=== PATIENT | male | born 1955 | race Caucasian/White ===

== ENCOUNTER → 2017-11-29 11:18 | Outpatient (CLI) | payer OTHER, SELFPAY ==
[2017-11-29 12:57] LABS: Hemoglobin A1c 5.9 % (4.2-6.3)
[2017-11-29 13:05] LABS: AST(SGOT) 12 U/L (15-37); Alanine Aminotransfer ALT/SGPT 22 U/L (16-61); Albumin, Serum 3.9 g/dL (3.2-5.0); Alkaline Phosphatase 78 U/L (45-117); Anion Gap 9 (5-15); BUN 15 mg/dL (7-18); BUN/Creat Ratio 15.2 RATIO (10-20); Calcium,Total 8.6 mg/dL (8.5-10.1); Chloride 106 mmol/L (98-107); Cholesterol 182 mg/dL (200); Creatinine, Serum 0.98 mg/dL (0.70-1.30); EST Glomerular Filtration Rate 81 mL/min (>60); Est Glom Filt Rate - Afr Amer 99 mL/min (>60); Glucose 110 mg/dL (74-106); High Density Lipoprotein 64 mg/dL; Protein, Total 7.9 g/dL (6.4-8.2); Sodium Level 138 mmol/L (136-145); Triglycerides 110 mg/dL; Very Low Density Lipoprotein 22 mg/dL (5-40)
== END ==
PROVIDERS: Family Provider Family Medicine; PCP Family Medicine; Visit Provider Family Medicine
DX: E11.9 Type 2 diabetes mellitus without complications (principal)
CPT/HCPCS: 36415; 80053; 80061; 83036

== ENCOUNTER → 2017-12-29 16:20 | Outpatient (CLI) | payer OTHER, SELFPAY ==
--- NOTE | 2017-12-29 16:35 | RAD_ITS ---
STUDY: X-RAY CHEST REASON FOR EXAM: Male, 62 years old. Preop TECHNIQUE: PA and lateral views of the chest. COMPARISON: None. FINDINGS: The lungs are hyperinflated. There is no demonstrated pleural abnormality. Normal size heart. Normal mediastinum and carlin. Normal visualized pulmonary arteries. Normal visualized aortic arch and descending thoracic aorta. There are diffuse degenerative changes of the visualized thoracic spine. Normal visualized ribs, clavicles, and shoulders. There is no demonstrated abnormality of the visualized soft tissue structures of the upper abdomen. RAD/Chest PA and Lateral IMPRESSION: Hyperinflated lungs suggestive of COPD. Degenerative changes of the thoracic spine. No acute cardiopulmonary disease process is seen. Electronically Signed: Karlos Lackey MD at 16:50 EDT , Service support ,
--- NOTE | 2017-12-29 16:38 | EKG12_ITS ---
Test Reason : PREOP Blood Pressure : / mmHG Vent. Rate : 081 BPM Atrial Rate : 081 BPM P-R Int : 134 ms QRS Dur : 104 ms QT Int : 366 ms P-R-T Axes : 052 -11 075 degrees QTc Int : 425 ms Normal sinus rhythm Possible Left atrial enlargement Incomplete right bundle branch block Borderline ECG Confirmed by RITESH GREY, SONALI ([id number]), assignment editor ARIN MONAE ([id number] on 01/02/2018 2:38:18 PM Referred By: Cuong Crowell Confirmed By:SONALI AWAD MD
[2017-12-29 16:44] LABS: Hematocrit 43.1 % (40-54); Hemoglobin 14.7 g/dl (13.0-16.5); Mean Corp Hgb Conc 34.1 g/gl (32-36); Mean Corpuscular Hgb 32.3 pg (27.0-32.0); Mean Corpuscular Volume 94.7 fL (80-94); Mean Platelet Vol. 8.6 fl (6.2-12.0); Platelet Count 274 K/mm3 (150-450); RBC Distribution Width CV 13.2 % (11.6-14.6); RBC Distribution Width SD 45.8 fl (35.1-43.9); Red Blood Count 4.55 M/mm3 (4.6-6.2); White Blood Count 8.1 K/mm3 (4.4-11.0)
[2017-12-29 16:46] LABS: Scan Indicated on CBC? Y/N NO
[2017-12-29 17:04] LABS: Partial Thromboplast Time 29.8 Seconds (24.1-36.2); Prothrombin Time (Protime)PT. 13.2 SECONDS (11.7-14.9)
[2017-12-29 17:15] LABS: Anion Gap 9 (5-15); BUN 12 mg/dL (7-18); BUN/Creat Ratio 11.5 RATIO (10-20); Calcium,Total 9.2 mg/dL (8.5-10.1); Chloride 101 mmol/L (98-107); Creatinine, Serum 1.04 mg/dL (0.70-1.30); EST Glomerular Filtration Rate 76 mL/min (>60); Est Glom Filt Rate - Afr Amer 93 mL/min (>60); Glucose 117 mg/dL (74-106); Sodium Level 136 mmol/L (136-145)
== END ==
PROVIDERS: Family Provider Family Medicine; PCP Family Medicine; Referring Provider Orthopaedic Surgery; Visit Provider Orthopaedic Surgery
DX: Z01.818 Encounter for other preprocedural examination (principal); M17.12 Unilateral primary osteoarthritis, left knee; S83.242A Other tear of medial meniscus, current injury, left knee, initial encounter; M71.22 Synovial cyst of popliteal space [Baker], left knee
CPT/HCPCS: 36415; 71046; 80048; 85027; 85610; 85730; 93005

== ENCOUNTER → 2018-01-23 10:42 | Outpatient (CLI) | payer OTHER, SELFPAY ==
--- NOTE | 2018-01-23 10:51 | VDLE_ITS ---
Reason For Study: R/O DVT Procedure LEFT Exam performed in department. GSV is normal. A preliminary report was called and/or faxed CFV is compressible, spontaneous, phasic, to DR MONTAÑO. competent, and demonstrates normal augmentation. FV is compressible, spontaneous, phasic, competent and demonstrates normal augmentation. POP V is compressible, spontaneous, phasic, competent and demonstrates normal augmentation. T/P Trunk is compressible. PTV is compressible. LT PerV is compressible. Interpretation Summary Deep veins of the left lower extremity are patent and compressible segmentally. There is no evidence of left lower extremity deep vein thrombosis. Valvular competence appears intact within the proximal deep venous system on the left . The left greater saphenous vein appears patent and compressible segmentally. Ordering Physician: Cuong Montaño Referring Physician: SUDHIR SMALLWOOD DO Performed By: Mary Odonnell, PERLA, RVT
== END ==
PROVIDERS: Family Provider Family Medicine; PCP Family Medicine; Referring Provider Orthopaedic Surgery; Visit Provider Orthopaedic Surgery
DX: M79.605 Pain in left leg (principal); R22.42 Localized swelling, mass and lump, left lower limb; Z96.652 Presence of left artificial knee joint
CPT/HCPCS: 93971

== ENCOUNTER → 2018-08-31 17:14 | Outpatient (CLI) | payer OTHER, SELFPAY ==
[2018-08-24 15:34] VITALS: BMI 36.1
--- NOTE | 2018-08-31 17:17 | MRI_ITS ---
STUDY: MRI LUMBAR SPINE WITHOUT CONTRAST REASON FOR EXAM: Male, 63 years old. Low back pain radiating to right leg TECHNIQUE: Standardized fat and water weighted pulse sequences were obtained in the sagittal and axial planes. COMPARISON: Lumbar spine films on August 31, 2018 FINDINGS: T12-L1: Normal endplates. Normal disc height, hydration and morphology. Normal bilateral facet joints. Normal central canal and bilateral lateral recesses. Normal bilateral intervertebral neural foramina. Decreased lumbar lordosis. There is no substantial scoliosis. Normal conus medullaris that terminates at T12-L1 L1-2: Endplate spurring. Narrowed disc space with desiccation of the disc and minor annular bulge with small left neural foraminal disc protrusion.. Normal bilateral facet joints. Normal central canal and bilateral lateral recesses. Mild left neuroforaminal stenosis.. L2-3: Narrowed disc space and endplate spurring. Desiccation of the disc and minor annular bulge. Mild facet arthropathy greater on the right. Mild narrowing of the central canal.. Normal bilateral recesses. Moderate left neuroforaminal stenosis and more severe narrowing on the right L3-4: Status post bilateral laminectomy. Mild endplate spurring. Normal disc height with desiccation of the disc and minor bulging disc osteophyte complex.. The lateral facet arthropathy greater on the right mild narrowing of the central canal. Normal bilateral recesses. Moderate bilateral neuroforaminal stenosis L4-5: Postsurgical changes status post bilateral laminectomy. Narrowed disc space and desiccation of the disc with mild annular bulge. Bilateral facet arthropathy.. Mild narrowing of the central canal. Mild right lateral recess stenosis. Moderate left neuroforaminal stenosis and severe narrowing on the right L5-S1: Grade 1 retrolisthesis desiccation of the disc and minor bulging disc osteophyte complex. Facet arthropathy and mild thickening of ligamenta flava slightly more pronounced on the left. Normal central canal. Mild bilateral recess encroachment. Moderate right neuroforaminal stenosis and more severe narrowing on the left Normal visualized sacral ala. Normal visualized paraspinous soft tissue structures. MRI/Spine Lumbar (Routine) IMPRESSION: No evidence for acute fracture or subluxation Postop change status post bilateral laminectomy at L3-4 and L4-5. Multilevel spinal stenosis secondary to disc disease and bony hypertrophy Findings as above Electronically Signed: Cuong Anthony MD at 19:39 EDT , Service support ,
--- NOTE | 2018-08-31 17:30 | RAD_ITS ---
STUDY: X-RAY - LUMBAR SPINE REASON FOR EXAM: Male, 63 years old. Back pain TECHNIQUE: 3 view(s) of the lumbar spine were obtained. COMPARISON: None FINDINGS: Normal lumbar lordosis. There is a mild scoliosis. Laminectomy defect at L3, L4, and L5 segments. Degenerative changes are noted of the vertebral bodies spurring at the endplates. Narrowed L4-5 disc space with vacuum phenomenon. The soft tissue structures are unremarkable. Right upper quadrant surgical clips. RAD/Lumbar Spine 2 or 3 Views IMPRESSION: Degenerative postsurgical changes of the lumbar spine. Mild scoliosis. Electronically Signed: Trevor Nicole DO at 18:07 EDT Tel [phone], Service support ,
== END ==
PROVIDERS: Family Provider Family Medicine; PCP Family Medicine; Referring Provider Family Medicine; Visit Provider Family Medicine
DX: M51.36 Other intervertebral disc degeneration, lumbar region (principal)
CPT/HCPCS: 72100; 72148

== ENCOUNTER 2018-10-18 09:30 | Outpatient (RCR) | payer OTHER, SELFPAY ==
[2018-08-24 15:34] VITALS: BMI 36.1
--- NOTE | 2018-09-25 18:04 | HP.PTEVAL ---
Patient's Visit Information GERMAN ALAMGUER is a 63 year old M referred to Physical Therapy by Imer Oreilly DO with a diagnosis of LBP. Date of Evaluation: 09/25/18 Physical Therapist: Aurelio Rosa PT, ATC - Visit Plan Frequency: 2x /Week Duration: 3 Weeks Plan: Postural edu, REIL, core stab ex's, nustep, and HEP - Subjective Findings: Pt reports he has had chronic LBP. Pt reports he had surgery in 2013 which completely took aways his pain until 1 year ago. Pt now reports the pain has returned and is bothering him a lot. Pt reports he has R LE pain that radiates down his leg all the way down to the ankle. Pt reports he had recent xrays and MRI performed which revealed spinal stenosis. Pt reports forward bending and lifting tends to increase his pain. Occasional sleep difficulty secondary to pain. Walking helps to decrease his pain. 1/10 pain at rest, 8/10 at worst - Pain LBP Pain Intensity (Out of 10): 1 Pain Intensity Range: 8 - Objective Neuro: B LE sensation is WNL to light touch. B achilles reflex= 1/3. ROM: Pt is minimally limited with flexion and extendion ROM. All other measurements WNL. MMT: B LE MMT is 5/5 throughout. Repeated movements: RFIS 10x2 peripheralized sx's. .JAEL increased central pain after 10x2. REIL 10x2 had no effect on LE or LBP - Goals Goal 1:: Decrease LBP x 50% to aid with sleep Goal Time Frame: 3 weeks Goal 2:: Decrease the frequency and intensity of R LE radiculopathy x 50% to aid with IADL's Goal Time Frame: 3 weeks Goal 3:: I with HEP Goal Time Frame: 3 weeks - Rehabilitation Potential Physical Therapy Diagnosis: Pt has LBP, decreased L/S ROM, and R LE radiculopathy secondary to L/S disc derrangement. Rehabilitation Potential: Good - Anticipated Interventions Patient/Client Instruction: Educate patient on: Condition, Plan of Care For the Purpose of:: To improve self management Therapeutic Exercise to Include: Strength training, Body mechanics, Postural training, Flexibilty training, Active ROM, Dynamic Lumbar Stabilization, Maral Exercises For the Purpose of:: To decrease pain, To increase ROM, To improve muscle performance and motor function Cryotherapy (ice pack, ice massage): Yes For the Purpose of:: To decrease pain Thank you for the opportunity to evaluate your patient. For Medicare and Medicare HMO plans, please review the plan of care and approve it. It will need to be FAXED BACK to us at [phone] for Medicare purposes. For Medicare only, by signing this I certify the plan of care. Please let me know if there are questions or concerns regarding this plan of care. Physician Signature: Date:
--- NOTE | 2018-10-18 09:59 | HP.PTDCSUM ---
HP - PT D/C Summary It has been my pleasure to treat GERMAN ALMAGUER under orders from Imer Oreilly DO, for the diagnosis of LBP for a total of 6 visit(s). Discharge Date: Please see the following information for a summary of their discharge status. - Subjective Subjective: Pt feels minimal pain this date - Pain LBP Pain Intensity (Out of 10): 1 - Overall Improvement % Improvement: 95 - Objective Objective/Function: 04/13 PAIN. No LE radiculopathy at this time. Pt is I with HEP. Rx goals achieved - Goals Goal 1:: Decrease LBP x 50% to aid with sleep Goal Progress: Goal Met Goal 2:: Decrease the frequency and intensity of R LE radiculopathy x 50% to aid with IADL's Goal Progress: Goal Met Goal 3:: I with HEP Goal Progress: Goal Met - Plan Plan: Discharge - D/C Information If there are questions or concerns regarding this patient's physical therapy, please feel free to call me at [phone]. Thank you for the referral of this patient. Sincerely, Aurelio Rosa, PT, ATC
== END 2018-10-18 10:56 | disposition home or self-care (01) ==
LOC: PT 09:30
PROVIDERS: Family Provider Family Medicine; PCP Family Medicine; Referring Provider Family Medicine; Visit Provider Family Medicine
DX: M51.36 Other intervertebral disc degeneration, lumbar region (principal)
CPT/HCPCS: 97110; 97161; 97530

== ENCOUNTER → 2018-12-06 12:52 | Outpatient (CLI) | payer OTHER, SELFPAY ==
[2018-08-24 15:34] VITALS: BMI 36.1
--- NOTE | 2018-12-06 12:54 | CT_ITS ---
STUDY: LOW DOSE CT LUNG CANCER SCREENING REASON FOR EXAM: Male, 63 years old. 30 pack-year history now smoking half a pack a day. 220 pounds. RADIATION DOSAGE (If Supplied By Facility): CTDIvol = ( 4.02 ) mGy, DLP = ( 146.97 ) mGycm TECHNIQUE: No contrast was administered. Low dose technique was utilized (average mAS-38 and kVp 120). 1.25 mm axial source images with a slice interval of 1.25-mm were reconstructed in lung windows. 2.5 mm axial source images with a slice interval of 2.5-mm were reconstructed in lung windows. 5.0 mm axial source images with a slice interval of 5.0-mm were reconstructed in soft tissue windows. Nodule measured using lung windows on PACS and/or independent workstation with automated measurement of minimum and maximum diameter. Nodule measurement reported as average diameter rounded to the nearest whole number. Growth is defined as an increase ins size of greater than 1.5 mm. COMPARISON: Chest, December 29, 2017. NODULES: Nodule #: 1 Density: Solid Lung location: Right upper lobe: Pleural-based Location in series: Series Number: 2 Image: 58 1. Size - D1 x D2 mm: mm: 2 mm average diameter Margin: Smooth Shape: [place] Calcification: Yes Fat: No Temporal comparison: None Nodule #: 2 Density: Solid Lung location: Right upper lobe: Pleural-based Location in series: Series Number: 2 Image: 57 Size - D1 x D2 mm: 2 x 2 mm: 2 mm average diameter Margin: Smooth Shape: Rounded Calcification: No Fat: No Temporal comparison: None Nodule #: 3 Density: Solid Lung location: Right upper lobe: 0.3 cm from pleura Location in series: Series Number: 2 Image: 103 Size - D1 x D2 mm: 2 x 2 mm: 2 mm average diameter Margin: Smooth Shape: Round Calcification: Yes Fat: No Temporal comparison: None Nodule #: 4 Density: Solid Lung location: Right upper lobe: 12.3 cm from pleura Location in series: Series Number: 2 Image: 110 Size - D1 x D2 mm: 2 x 2 mm: 2 mm average diameter Margin: Smooth Shape: Rounded Calcification: No Fat: No Temporal comparison: None Nodule #: 5 Density: Solid Lung location: Right middle lobe: Pleural-based Location in series: Series Number: 2 Image: 146 Size - D1 x D2 mm: 2 x 2 mm: 2 mm average diameter Margin: Smooth Shape: Triangular Calcification: No Fat: No Temporal comparison: None Nodule #: 6 Density: Solid Lung location: Right lower lobe: 0.5 cm from pleura Location in series: Series Number: 2 Image: 17 Size - D1 x D2 mm: 4 x 5 mm: 5 mm average diameter Margin: Smooth Shape: Oval Calcification: No Fat: No Temporal comparison: None Total lung nodules (excluding granulomas): 4 Emphysema: The lungs are hyperexpanded without evidence of emphysematous change. Endobronchial lesion: Not Aorta: Minimal atherosclerotic changes without aneurysm. Coronary arteries: Atherosclerotic changes. Heart: Normal in size Pulmonary artery: Normal Mediastinal nodes: None Other chest and abdominal findings: There are degenerative changes of the thoracic spine. There are bilateral adrenal low-attenuation masses suggesting adenomas. CT/Low Dose CT Lung Screening IMPRESSION: 1. Multiple pulmonary nodules. There is evidence of old granulomatous disease. 2. Bilateral adrenal nodules. 3. Atherosclerotic changes of the aorta and coronary arteries. Lung-RADS category 1 - Continue annual screening with LDCT in 12 months. IMPORTANT NOTES FOR USE: ACR Lung-RADS Version 1.0 Assessment Categories Release Date: July 30, 2013 Category: Coded 0-4 bases on nodule(s) with highest degree of suspicion. Negative screen is defined as categories 1 and 2; a positive screen is defined as categories 3 and 4. Category 3 and 4A nodules that are unchanged on interval CT should be coded as category 2, and individuals returned to screening in 12 months. Category 4X: Category 3 or 4 nodules with additional imaging findings that increase the suspicion of lung cancer, such as spiculation, GGN that doubles in size in 1 year, enlarged lymph notes, etc. Category Modifiers: S (significant finding unrelated to lung cancer) and C (prior history of treated lung cancer) may be added to the 0-4 Lung-RADS Electronically Signed: Jules Tautm DO at 18:09 EDT Tel [phone], Service support ,
== END ==
PROVIDERS: Family Provider Family Medicine; PCP Family Medicine; Referring Provider Internal Medicine Pulmonary Disease; Visit Provider Internal Medicine Pulmonary Disease
DX: Z87.891 Personal history of nicotine dependence (principal)
CPT/HCPCS: G0297

== ENCOUNTER → 2019-02-13 10:01 | Outpatient (CLI) | payer OTHER, SELFPAY ==
[2019-02-13 09:36] VITALS: BMI 36.1
[2019-02-13 13:13] LABS: AST(SGOT) 14 U/L (15-37); Alanine Aminotransfer ALT/SGPT 23 U/L (16-61); Albumin, Serum 3.7 g/dL (3.2-5.0); Alkaline Phosphatase 76 U/L (45-117); Anion Gap 7 (5-15); BUN 14 mg/dL (7-18); BUN/Creat Ratio 15.7 RATIO (10-20); Calcium,Total 8.6 mg/dL (8.5-10.1); Chloride 105 mmol/L (98-107); Creatinine, Serum 0.89 mg/dL (0.70-1.30); EST Glomerular Filtration Rate 91 mL/min (>60); Est Glom Filt Rate - Afr Amer 110 mL/min (>60); Globulin 3.8 g/dL (2.2-4.2); Glucose 135 mg/dL (74-106); Potassium 4.2 mmol/L (3.5-5.1); Protein, Total 7.5 g/dL (6.4-8.2); Sodium Level 140 mmol/L (136-145)
== END ==
PROVIDERS: Family Provider Family Medicine; PCP Family Medicine; Visit Provider Family Medicine
DX: E11.9 Type 2 diabetes mellitus without complications (principal)
CPT/HCPCS: 36415; 80053

== ENCOUNTER 2019-05-07 06:58 | Day surgery (SDC) | payer OTHER, SELFPAY ==
[2019-03-29 10:25] VITALS: BMI 36.9
[2019-05-07 07:27] VITALS: BP 116/80; PULSE 73; RESP 16; TEMP 36.8; O2SAT 95; BMI 36.3
[2019-05-07 07:35] LABS: Bedside Glucose 139 mg/dL (70-110)
[2019-05-07] MEDS: Lactated Ringers 1,000 ML 100 ML IV (08:07)
[2019-05-07] MEDS: Bupivacaine 0.25% 30 ML Vial (08:23)
[2019-05-07] MEDS: MethylPREDNISolone Acetate 80 MG/ML Vial (08:23)
--- NOTE | 2019-05-07 08:24 | RAD_ITS ---
STUDY: X-RAY - LUMBAR SPINE REASON FOR EXAM: Male, 64 years old. STEROID INJECTION, L4-S1 2 LEVELS -- 18 SECONDS FL TIME TECHNIQUE: 2 coned-down intraoperative view(s) of the lumbar spine were obtained. COMPARISON: None FINDINGS: Intraoperative imaging provided for right L4-L5 and L5-S1 level steroid injection. RAD/Lumbar Spine 2 or 3 Views IMPRESSION: Intraoperative imaging provided for right L4-L5 and L5-S1 steroid injection. Electronically Signed: Marcos Alexandra, at 11:07 EST , Service support ,
[2019-05-07 08:34] VITALS: BP 116/80; BP 119/92; PULSE 72; RESP 18; TEMP 37.1; O2SAT 96
[2019-05-07 08:40] VITALS: BP 116/80; BP 131/56; PULSE 70; RESP 16; O2SAT 95
[2019-05-07 08:45] VITALS: BP 116/80; BP 122/61; PULSE 72; RESP 16; O2SAT 97
[2019-05-07 08:49] VITALS: BP 116/80; BP 120/60; PULSE 67; RESP 16; TEMP 37.2; O2SAT 95
[2019-05-07 09:07] VITALS: BP 116/80
--- NOTE | 2019-05-07 14:04 | OP.PCM_ITS ---
Report of Operation Date of Procedure: 05/07/19 Description of Surgical Findings:: PREOPERATIVE DIAGNOSIS: Lumbosacral radiculopathy, lumbosacral degenerative disc disease, lumbosacral spinal stenosis POSTOPERATIVE DIAGNOSIS: Lumbosacral radiculopathy, lumbosacral degenerative disc disease, lumbosacral spinal stenosis PROCEDURE PERFORMED: Right-sided lumbar transforaminal epidural steroid in jection, L4-5 and L5-S1. ANESTHESIA: MAC BLOOD LOSS: Minimal COMPLICATIONS: None DESCRIPTION OF PROCEDURE: History and physical of today was reviewed. Risks and benefits of the procedure were explained. The patient understood and agreed to proceed. Informed consent was obtained. IV inserted per routine protocol. The patient was taken to the operating room and placed in the prone position with a pillow positioned underneath the abdomen. The right side of his lower back was prepped and draped in a sterile fashion using iodine x3. Under fluoroscopy guidance on oblique view, the L4 through S1 vertebral bodies were visualized. The skin and subcutaneous tissue was anesthetized with approximately 5 mL of 1% lidocaine using a 25-gauge regular needle. Under direct visualization with fluoroscopy at approximately 35-degree angle, starting on the right L4, ending on the right L5, using a 22-gauge 5-inch spinal needle, the needle was advanced via the skin. The tip of the needle was maneuvered and directed towards the inferior and medial gutter of the transverse process at the superiormost aspect of the neural foramen. Once the tip of the needle was at the vicinity of the foramen, after negative aspiration for blood or CSF, a total of 1 mL of contrast was injected in divided doses between both levels to confirm correct placement of the needle as well as medial spread. The confirmation was obtained on AP as well as lateral view. After repeated negative aspiration and confirmation on AP as well as lateral view, a total of 6 mL of preservative-free 0.25% Marcaine with 80 mg of Depo-Medrol was injected in divided doses between both levels. The needles were then removed intact. The patient experienced no sign or symptoms of intrathecal or intravascular injection. The patient experienced no paresthesia. The procedure was completed without any apparent difficulty or any complications. The patient appeared to tolerate it well. Assessment and plan: This is a 64-year-old male with lumbosacral radiculopathy, lumbosacral degenerative disc disease, lumbosacral spinal stenosis status post right-sided lumbar transforaminal epidural steroid injection L4-5, L5-S1 patient will continue his current medications patient found approximately 2 weeks for reevaluation.
== END 2019-05-07 09:09 | disposition home or self-care (01) ==
LOC: SDC 06:59 → AC 07:00
PROVIDERS: PCP Family Medicine; Referring Provider Anesthesiology Pain Medicine; Visit Provider Anesthesiology Pain Medicine
PROC: 3E0S3BZ Introduction of Anesthetic Agent into Epidural Space, Percutaneous Approach (ICD-10-PCS; CPT 62322; principal; 2019-05-07 08:25)
DX: M51.17 Intervertebral disc disorders with radiculopathy, lumbosacral region (principal); M48.07 Spinal stenosis, lumbosacral region; M47.27 Other spondylosis with radiculopathy, lumbosacral region; M96.1 Postlaminectomy syndrome, not elsewhere classified; E11.9 Type 2 diabetes mellitus without complications; G47.33 Obstructive sleep apnea (adult) (pediatric); I10 Essential (primary) hypertension; F17.200 Nicotine dependence, unspecified, uncomplicated; Z79.84 Long term (current) use of oral hypoglycemic drugs; Z79.899 Other long term (current) drug therapy
CPT/HCPCS: 64484; 64483; 72100; 82962; J7120

== ENCOUNTER 2019-06-04 06:02 | Day surgery (SDC) | payer OTHER, SELFPAY ==
[2019-06-04] VITALS (7 sets, daily range): BP systolic 85–127; BP diastolic 57–99; PULSE 72–84; RESP 16–18; TEMP 36.9–37.1; O2SAT 95–96; BMI 36.4
[2019-06-04] MEDS: Lactated Ringers 1,000 ML 100 ML IV (06:42)
--- NOTE | 2019-06-04 07:30 | RAD_ITS ---
STUDY: X-RAY - LUMBAR SPINE REASON FOR EXAM: Male, 64 years old. Block, lumbar facet, l3-s1, right TECHNIQUE: 3 intraoperative view(s) of the lumbar spine were obtained. COMPARISON: None FINDINGS: Intraoperative imaging provided for right L3 S1 facet joint block. RAD/Lumbar Spine 2 or 3 Views IMPRESSION: Intraoperative imaging provided for right L3 S1 facet joint block. Electronically Signed: Marcos Alexandra, at 15:05 EST , Service support ,
[2019-06-04] MEDS: Bupivacaine 0.25% 30 ML Vial (07:33)
[2019-06-04] MEDS: MethylPREDNISolone Acetate 80 MG/ML Vial (07:35)
--- NOTE | 2019-06-04 08:09 | OP.PCM_ITS ---
Report of Operation Date of Procedure: 06/04/19 Description of Surgical Findings:: PROCEDURE: Right-sided lumbar facet steroid injection L3, L4, L5, S1 PREOPERATIVE DIAGNOSIS: Lumbosacral spondylosis, lumbosacral degenerative disc disease, and lumbar facet arthropathy POSTOPERATIVE DIAGNOSIS: Lumbosacral spondylosis, lumbosacral degenerative disc disease, and lumbar facet arthropathy ANESTHESIA: MAC COMPLICATIONS: None BLOOD LOSS: Minimal PROCEDURE IN DETAIL: History and physical today was reviewed. Risks and benefits of the procedure were explained. The patient understood, agreed to our procedure, and informed consent was obtained. IV inserted per routine protocol. The patient was taken to the operating room, placed in a prone position with a pillow positioned underneath the abdomen. The right side of his lower back was prepped and draped in a sterile fashion using iodine x3. Under fluoroscopy guidance, on AP view, L3 through S1 vertebral bodies were visualized. Skin and subcutaneous tissues were anesthetized with approximately 5 mL of 1% lidocaine using a 25-gauge regular needle. Under direct visualization with fluoroscopy at approximately 25-degree angle, starting on the right L3, ending on the right S1, passing through the L4-L5 using a 22-gauge 3 1/2-inch spinal needle, the needle was advanced via the skin. The tip of the needle was maneuvered and directed towards the superior and medial gutter of the transverse process at the vicinity of the medial branch. Once the tip of the needle was in contact with the bone, the needle pulled approximately 2 mm off the bone. After negative aspiration of blood with CSF and confirmation of AP as well as oblique view, a total of 8 mL of preservative-free 0.25% Marcaine with 80 mg of Depo- Medrol was injection in divided doses between those 4 levels. The needles were then removed intact. The patient experienced no signs or symptoms intrathecal, intravascular injection. The patient experienced no paraesthesia. The procedure was completed without any apparent difficult, any complication. The patient appeared to tolerate well. ASSESSMENT AND PLAN: This is a 64-year-old Male with Lumbosacral spondylosis, lumbosacral degenerative disc disease, and lumbar facet arthropathy, status post right-sided lumbar facet steroid injection L3 through S1. The patient will continue his current medications. The patient will follow in approximately 2 weeks for possible repeat of the procedure if indicated.
== END 2019-06-04 08:50 | disposition home or self-care (01) ==
LOC: SDC 06:02 → AC 06:03
PROVIDERS: PCP Family Medicine; Referring Provider Anesthesiology Pain Medicine; Visit Provider Anesthesiology Pain Medicine
PROC: 3E0T3BZ Introduction of Anesthetic Agent into Peripheral Nerves and Plexi, Percutaneous Approach (ICD-10-PCS; CPT 64493; principal; 2019-06-04 07:25)
DX: M47.27 Other spondylosis with radiculopathy, lumbosacral region (principal); M47.816 Spondylosis without myelopathy or radiculopathy, lumbar region; M51.37 Other intervertebral disc degeneration, lumbosacral region; E11.9 Type 2 diabetes mellitus without complications; I10 Essential (primary) hypertension; G47.33 Obstructive sleep apnea (adult) (pediatric); M19.90 Unspecified osteoarthritis, unspecified site; Z79.899 Other long term (current) drug therapy; Z79.84 Long term (current) use of oral hypoglycemic drugs; F17.290 Nicotine dependence, other tobacco product, uncomplicated; M96.1 Postlaminectomy syndrome, not elsewhere classified
CPT/HCPCS: 01992; 64493; 64494; 64495; 64483; 72100; J7120

== ENCOUNTER 2019-10-08 09:09 | Day surgery (SDC) | payer OTHER, SELFPAY ==
[2019-08-14 09:46] VITALS: BMI 36.4
[2019-10-08 09:26] VITALS: BP 152/86; PULSE 75; RESP 16; TEMP 37; O2SAT 99; BMI 35.6
[2019-10-08] MEDS: Lactated Ringers 1,000 ML 100 ML IV (09:39)
[2019-10-08] MEDS: 0.9% Normal Saline (Pres. free 10 ML Vial (10:26)
[2019-10-08] MEDS: MethylPREDNISolone Acetate 80 MG/ML Vial (10:26)
[2019-10-08] MEDS: Bupivacaine 0.25% 30 ML Vial (10:26)
[2019-10-08 10:35] VITALS: BP 138/69; BP 152/86; PULSE 75; RESP 18; TEMP 36.7; O2SAT 96
[2019-10-08 10:40] VITALS: BP 134/75; BP 152/86; PULSE 80; RESP 16; O2SAT 95
--- NOTE | 2019-10-08 10:42 | PCM.OPRPT ---
Report of Operation Date of Procedure: 10/08/19 Description of Surgical Findings:: PREOPERATIVE DIAGNOSIS: Lumbosacral radiculopathy, lumbosacral degenerative disc disease, lumbosacral spinal stenosis POSTOPERATIVE DIAGNOSIS: Lumbosacral radiculopathy, lumbosacral degenerative disc disease, lumbosacral spinal stenosis PROCEDURE PERFORMED: Caudal epidural steroid injection. ANESTHESIA: MAC. BLOOD LOSS: Minimal. COMPLICATIONS: None. DESCRIPTION OF PROCEDURE: History and physical of today was reviewed. Risks and benefits of the procedure were explained. The patient understood and agreed to proceed. Informed consent was obtained. IV inserted per routine protocol. The patient was taken to the operating room and placed in the prone position with a pillow positioned underneath the abdomen. The lower back and tailbone area was prepped and draped in a sterile fashion using iodine x3. Under fluoroscopy guidance on a lateral view, the caudal space was identified. The skin and subcutaneous tissue was anesthetized with approximately 3 mL of 1% lidocaine using a 25-gauge regular needle. Under direct visualization with fluoroscopy, using a 22-gauge 3-1/2-inch spinal needle, the needle was advanced via the skin through the sacral hiatus. The tip of the needle was passed through the sacrococcygeal ligament and advanced to approximately S4 area. After negative aspiration of blood or CSF, a total of 3 mL of contrast was injected to confirm correct placement of the needle as well as cephalad spread. The spread was followed to approximately L5 area. After confirmation on AP as well as lateral view and repeated negative aspiration, a total of 15 mL of preservative-free 0.125% Marcaine with 80 mg of Depo-Medrol was injected easily. The needle was then removed intact. The patient experienced no sign or symptoms of intrathecal or intravascular injection. The patient experienced no paresthesia. The procedure was completed without any apparent difficulty or any complications. The patient appeared to tolerate it well. ASSESSMENT AND PLAN: This is a 64-year-old male with lumbosacral radiculopathy, lumbosacral degenerative disc disease, lumbosacral spinal stenosis status post caudal epidural steroid injection patient will continue his current medications, patient will follow approximately 2 weeks for reevaluation.
[2019-10-08 10:45] VITALS: BP 127/95; BP 152/86; PULSE 76; RESP 16; O2SAT 96
[2019-10-08 10:50] VITALS: BP 138/82; BP 152/86; PULSE 72; RESP 16; TEMP 36.3; O2SAT 94
--- NOTE | 2019-10-08 10:50 | RAD_ITS ---
PROCEDURE: Caudal block. DATE OF EXAMINATION: October 08, 2019. INDICATION: Male, 64 years old. Low back pain. FLUOROSCOPY TIME (if supplied): (4.5 seconds) minutes/seconds. 2 intraoperative images were obtained. Intraoperative imaging provided for caudal block. RAD/Fluoro Guided Needle Placement IMPRESSION: Intraoperative imaging provided for caudal block. Electronically Signed: Marcos Alexandra, at 15:44 EDT , Service support ,
[2019-10-08 11:06] VITALS: BP 152/86
== END 2019-10-08 11:08 | disposition home or self-care (01) ==
LOC: SDC 09:09 → AC 09:10
PROVIDERS: PCP Family Medicine; Referring Provider Anesthesiology Pain Medicine; Visit Provider Anesthesiology Pain Medicine
PROC: 3E0S3BZ Introduction of Anesthetic Agent into Epidural Space, Percutaneous Approach (ICD-10-PCS; CPT 62282; principal; 2019-10-08 10:45)
DX: M48.07 Spinal stenosis, lumbosacral region (principal); M51.17 Intervertebral disc disorders with radiculopathy, lumbosacral region; Z79.899 Other long term (current) drug therapy; Z79.84 Long term (current) use of oral hypoglycemic drugs; I10 Essential (primary) hypertension; M19.90 Unspecified osteoarthritis, unspecified site; E11.9 Type 2 diabetes mellitus without complications; G47.33 Obstructive sleep apnea (adult) (pediatric); Z87.891 Personal history of nicotine dependence
CPT/HCPCS: 01992; 62323; 64483; 77002; J7120; J3490

== ENCOUNTER → 2020-05-27 13:08 | Outpatient (CLI) | payer MEDICARE, SELFPAY ==
[2020-05-27 12:33] VITALS: BMI 35.2
--- NOTE | 2020-05-27 13:09 | CT_ITS ---
STUDY: LOW DOSE CT LUNG CANCER SCREENING REASON FOR EXAM: Male, 65 years old. Lung cancer screening RADIATION DOSAGE (If Supplied By Facility): CTDIvol = ( 3.40 ) mGy, DLP = ( 118.26 ) mGycm TECHNIQUE: No contrast was administered. Low dose technique was utilized (average mAS-38 and kVp 120). 1.25 mm axial source images with a slice interval of 1.25-mm were reconstructed in lung windows. 2.5 mm axial source images with a slice interval of 2.5-mm were reconstructed in lung windows. 5.0 mm axial source images with a slice interval of 5.0-mm were reconstructed in soft tissue windows. Nodule measured using lung windows on PACS and/or independent workstation with automated measurement of minimum and maximum diameter. Nodule measurement reported as average diameter rounded to the nearest whole number. Growth is defined as an increase ins size of greater than 1.5 mm. COMPARISON: Comparison is made with prior examination dated 12/06/2018. NODULES: Stable 2 mm noncalcified nodule in the peripheral lateral aspect of the right upper lobe as seen on axial image #62. Stable tiny calcified granuloma in the peripheral aspect of the right upper lobe. Emphysema: Minimal increased markings in the peripheral lateral aspect of the lingular segment of the left upper lobe suggestive of scarring. Endobronchial lesion: None Aorta: Atherosclerotic calcific plaques. Coronary arteries: Coronary artery calcification. Heart: Unremarkable Pulmonary artery: Unremarkable Mediastinal nodes: Unremarkable Other chest and abdominal findings: CT/Low Dose CT Lung Screening IMPRESSION: Lung-RADS category 2 - Continue annual screening with LDCT in 12 months. IMPORTANT NOTES FOR USE: ACR Lung-RADS Version 1.0 Assessment Categories Release Date: July 30, 2013 Category: Coded 0-4 bases on nodule(s) with highest degree of suspicion. Negative screen is defined as categories 1 and 2; a positive screen is defined as categories 3 and 4. Category 3 and 4A nodules that are unchanged on interval CT should be coded as category 2, and individuals returned to screening in 12 months. Category 4X: Category 3 or 4 nodules with additional imaging findings that increase the suspicion of lung cancer, such as spiculation, GGN that doubles in size in 1 year, enlarged lymph notes, etc. Category Modifiers: S (significant finding unrelated to lung cancer) and C (prior history of treated lung cancer) may be added to the 0-4 Lung-RADS Electronically Signed: Marcos Alexandra MD at 13:48 EST , Service support ,
== END ==
PROVIDERS: PCP Family Medicine; Referring Provider Nurse Practitioner Family; Visit Provider Nurse Practitioner Family
DX: Z12.2 Encounter for screening for malignant neoplasm of respiratory organs (principal); Z87.891 Personal history of nicotine dependence
CPT/HCPCS: 71271

== ENCOUNTER 2020-06-19 16:47 | Outpatient (RCR) | payer MEDICARE, SELFPAY ==
[2020-05-27 12:33] VITALS: BMI 35.2
[2020-06-19] MEDS: COVID-19 VACC, MRNA(PFIZER)/PF 30 MCG/0.3 ML SYRINGE IM (15:00)
[2020-07-10] MEDS: COVID-19 VACC, MRNA(PFIZER)/PF 30 MCG/0.3 ML SYRINGE IM (14:53)
== END 2020-06-19 23:59 ==
LOC: IMMUN 16:47
PROVIDERS: PCP Family Medicine; Visit Provider Family Medicine
DX: Z23 Encounter for immunization (principal)
CPT/HCPCS: 0001A; 0002A; 91300

== ENCOUNTER → 2020-07-08 15:19 | Outpatient (CLI) | payer MEDICARE, SELFPAY ==
[2020-07-08 15:00] VITALS: BMI 35.0
[2020-07-08 17:02] LABS: ALB/GLOB Ratio 1.2 RATIO (0.9-2.4); AST(SGOT) 6 U/L (15-37); Alanine Aminotransfer ALT/SGPT 22 U/L (16-61); Albumin, Serum 4.1 g/dL (3.2-5.0); Alkaline Phosphatase 88 U/L (45-117); Anion Gap 6 (5-15); BUN 20 mg/dL (7-18); BUN/Creat Ratio 21.3 RATIO (10-20); Calcium,Total 8.9 mg/dL (8.5-10.1); Chloride 105 mmol/L (98-107); Cholesterol 206 mg/dL (200); Creatinine, Serum 0.94 mg/dL (0.70-1.30); EST Glomerular Filtration Rate 85 mL/min (>60); Est Glom Filt Rate - Afr Amer 103 mL/min (>60); Globulin 3.4 g/dL (2.2-4.2); Glucose 117 mg/dL (74-106); High Density Lipoprotein 59 mg/dL; Potassium 4.1 mmol/L (3.5-5.1); Protein, Total 7.5 g/dL (6.4-8.2); Sodium Level 137 mmol/L (136-145); Triglycerides 183 mg/dL; Very Low Density Lipoprotein 37 mg/dL (5-40)
== END ==
PROVIDERS: PCP Family Medicine; Referring Provider Family Medicine; Visit Provider Family Medicine
DX: I10 Essential (primary) hypertension (principal)
CPT/HCPCS: 36415; 80053; 80061

== ENCOUNTER → 2021-07-28 | Outpatient (CLI) | payer MEDICARE, SELFPAY ==
--- NOTE | 2021-07-28 12:54 | CT_ITS ---
STUDY: LOW DOSE CT LUNG CANCER SCREENING REASON FOR EXAM: Male, 66 years old. Lung cancer screening -- and gt;30 pk yr hx; current smoker; asymptomatic RADIATION DOSAGE (If Supplied By Facility): CTDIvol = ( 4.02 ) mGy, DLP = ( 145.47 ) mGycm TECHNIQUE: No contrast was administered. Low dose technique was utilized (average mAS-38 and kVp 120). 1.25 mm axial source images with a slice interval of 1.25-mm were reconstructed in lung windows. 2.5 mm axial source images with a slice interval of 2.5-mm were reconstructed in lung windows. 5.0 mm axial source images with a slice interval of 5.0-mm were reconstructed in soft tissue windows. COMPARISON: None. NODULES: Nodule #: 1 Density: Solid Lung location: Right lower lobe lobe. 0.5 cm from the pleura Location in series: Series Number: 2 Image: 179 Size - 5 x 6 mm. Margin: Smooth Shape: Oval Calcification: No Fat: No Temporal comparison: Stable. Nodule #: 2 Density: Solid Lung location: Left lower lobe lobe. 0.3 cm from the pleura. Location in series: Series Number: 2 Image: 151 Size - 3 mm. Margin: Smooth Shape: Round Calcification: No Fat: No Temporal comparison: Stable. Total lung nodules (excluding granulomas): 2 There are a few additional stable areas of parenchymal pleural fibrosis/scarring predominantly in the anterolateral aspects of the right middle lobe and left upper lobe. There are also a few scattered tiny 1 to 2 mm calcified granulomas. Emphysema: Minimal Endobronchial lesion: None Other lung findings: No focal consolidation. No pleural effusion or pneumothorax. Mediastinum: Heart size is normal. No pericardial effusion. Mild arterial atherosclerotic calcifications in the thoracic aorta. Coronary artery calcifications. No thoracic aortic aneurysm on noncontrast enhanced study. Bones/soft tissues: No acute fracture or subluxation. Mild to moderate multilevel degenerative changes of the spine. No destructive osseous lesions. Upper abdomen: Assessment of the upper abdomen is significantly limited due to limitations in technique/protocols of this study. There is an apparent 3.2 cm mass in the left retroperitoneum likely relating to the left adrenal gland. This is incompletely assessed but appears stable in size since 12/06/2018. CT/Low Dose CT Lung Screening IMPRESSION: 1. 2 stable solid nodules as detailed above. The larger of which measures up to 6 mm and is stable since 2019. Lung-RADS category 2 - Continue annual screening with LDCT in 12 months. 2. Apparent 3.2 cm likely left adrenal mass demonstrates temporal stability since 2019 but is incompletely assessed on this study. Consider nonemergent CT for further assessment. IMPORTANT NOTES FOR USE: ACR Lung-RADS Version 1.1 Assessment Categories Release Date: 2018 Category: Coded 0-4 bases on nodule(s) with highest degree of suspicion. Negative screen is defined as categories 1 and 2; a positive screen is defined as categories 3 and 4. Category 3 and 4A nodules that are unchanged on interval CT should be coded as category 2, and individuals returned to screening in 12 months. Category 4X: Category 3 or 4 nodules with additional imaging findings that increase the suspicion of lung cancer, such as spiculation, GGN that doubles in size in 1 year, enlarged lymph notes, etc. Category Modifiers: S (significant finding unrelated to lung cancer) Electronically Signed: Jorge Perez, at 15:04 EDT ,
== END | disposition home or self-care (01) ==
LOC: CT 12:52
PROVIDERS: PCP Family Medicine; Visit Provider Nurse Practitioner Family
DX: Z87.891 Personal history of nicotine dependence (principal); Z12.2 Encounter for screening for malignant neoplasm of respiratory organs
CPT/HCPCS: 71271

== ENCOUNTER → 2021-08-06 | Outpatient (CLI) | payer MEDICARE, SELFPAY ==
[2021-08-06 12:31] LABS: AST(SGOT) 16 U/L (15-37); Alanine Aminotransfer ALT/SGPT 25 U/L (16-61); Albumin, Serum 3.7 g/dL (3.2-5.0); Alkaline Phosphatase 76 U/L (45-117); Anion Gap 4 (5-15); BUN 13 mg/dL (7-18); BUN/Creat Ratio 13.6 RATIO (10-20); Calcium,Total 8.9 mg/dL (8.5-10.1); Chloride 104 mmol/L (98-107); Creatinine, Serum 0.95 mg/dL (0.70-1.30); EST Glomerular Filtration Rate 84 mL/min (>60); Est Glom Filt Rate - Afr Amer 101 mL/min (>60); Globulin 3.7 g/dL (2.2-4.2); Glucose 170 mg/dL (74-106); Potassium 3.9 mmol/L (3.5-5.1); Protein, Total 7.4 g/dL (6.4-8.2); Sodium Level 137 mmol/L (136-145)
== END | disposition home or self-care (01) ==
LOC: BIMLAB 10:02
PROVIDERS: PCP Family Medicine; Referring Provider Family Medicine; Visit Provider Family Medicine
DX: I10 Essential (primary) hypertension (principal)
CPT/HCPCS: 36415; 80053

== ENCOUNTER → 2022-04-07 | Outpatient (CLI) | payer MEDICARE, SELFPAY ==
[2022-04-07 17:28] LABS: ALB/GLOB Ratio 0.9 RATIO (0.9-2.4); AST(SGOT) 7 U/L (15-37); Alanine Aminotransfer ALT/SGPT 26 U/L (16-61); Albumin, Serum 3.7 g/dL (3.2-5.0); Alkaline Phosphatase 72 U/L (45-117); Anion Gap 7 (5-15); BUN 13 mg/dL (7-18); BUN/Creat Ratio 14.7 RATIO (10-20); Calcium,Total 9.1 mg/dL (8.5-10.1); Chloride 105 mmol/L (98-107); Cholesterol 219 mg/dL (200); Creatinine, Serum 0.88 mg/dL (0.70-1.30); EST Glomerular Filtration Rate 91 mL/min (>60); Est Glom Filt Rate - Afr Amer 110 mL/min (>60); Globulin 3.9 g/dL (2.2-4.2); Glucose 142 mg/dL (74-106); High Density Lipoprotein 59 mg/dL; Protein, Total 7.6 g/dL (6.4-8.2); Sodium Level 139 mmol/L (136-145); Triglycerides 252 mg/dL
[2022-04-07 17:29] LABS: Thyroid Stim Hormone (TSH) 0.64 uIU/mL (0.358-3.74); Very Low Density Lipoprotein 50 mg/dL (5-40)
== END | disposition home or self-care (01) ==
LOC: BIMLAB 15:31
PROVIDERS: PCP Family Medicine; Referring Provider Family Medicine; Visit Provider Family Medicine
DX: I10 Essential (primary) hypertension (principal); E11.9 Type 2 diabetes mellitus without complications
CPT/HCPCS: 36415; 80053; 80061; 84443

== ENCOUNTER → 2022-09-14 | Outpatient (CLI) | payer MEDICARE, SELFPAY ==
[2022-09-14 12:37] LABS: Anion Gap 6 (5-15); BUN 13 mg/dL (7-18); BUN/Creat Ratio 14.1 RATIO (10-20); Chloride 106 mmol/L (98-107); Cholesterol 144 mg/dL (200); Creatinine, Serum 0.92 mg/dL (0.70-1.30); EST Glomerular Filtration Rate 87 mL/min (>60); Est Glom Filt Rate - Afr Amer 105 mL/min (>60); Glucose 195 mg/dL (74-106); High Density Lipoprotein 56 mg/dL; Potassium 3.9 mmol/L (3.5-5.1); Sodium Level 137 mmol/L (136-145); Triglycerides 149 mg/dL; Very Low Density Lipoprotein 30 mg/dL (5-40)
[2022-09-14 12:54] LABS: Microalbumin,Random Urine 78.9 mg/L (NO RANGE EST.); Microalbumin:Creatinine Ratio 18.6 mg/g CRE (<30 mg/g CRE)
[2022-09-14 12:57] LABS: Hemoglobin A1c 7.9 % (3.8-5.6)
== END | disposition home or self-care (01) ==
LOC: BIMLAB 09:45
PROVIDERS: PCP Family Medicine; Referring Provider Family Medicine; Visit Provider Family Medicine
DX: I10 Essential (primary) hypertension (principal); E11.9 Type 2 diabetes mellitus without complications
CPT/HCPCS: 36415; 80048; 80061; 82043; 82570; 83036

== ENCOUNTER → 2022-09-28 | Outpatient (CLI) | payer MEDICARE, SELFPAY ==
--- NOTE | 2022-09-28 13:25 | CT_ITS ---
STUDY: LOW DOSE CT LUNG CANCER SCREENING REASON FOR EXAM: Male, 67 years old. Lung cancer screening -- and gt; 20 pk yr hx;current smoker;asymptomatic RADIATION DOSAGE (If Supplied By Facility): CTDIvol = ( 3.02 ) mGy, DLP = ( 101.18 ) mGycm TECHNIQUE: No contrast was administered. Low dose technique was utilized (average mAS-38 and kVp 120). 1.25 mm axial source images with a slice interval of 1.25-mm were reconstructed in lung windows. 2.5 mm axial source images with a slice interval of 2.5-mm were reconstructed in lung windows. 5.0 mm axial source images with a slice interval of 5.0-mm were reconstructed in soft tissue windows. COMPARISON: Comparison is made with prior study July 28, 2021. NODULES: Stable 5 mm x 6 mm noncalcified nodule in the peripheral lateral aspect of the right lower lobe as seen on axial image #167. Stable 3 mm in noncalcified nodule in the peripheral lateral aspect of the left lower lobe as seen on axial image #62. Emphysema: Mild emphysematous changes. Endobronchial lesion: Unremarkable Aorta: Mild atherosclerotic calcific plaques. CORONARY ARTERIES: Coronary artery calcification is seen. Heart: Unremarkable Pulmonary artery: Unremarkable Mediastinal nodes: Small mediastinal lymph nodes. Other chest and abdominal findings: CT/Low Dose CT Lung Screening IMPRESSION: Lung-RADS category 2 - Continue annual screening with LDCT in 12 months. IMPORTANT NOTES FOR USE: ACR Lung-RADS Version 1.1 Assessment Categories Release Date: 2018 Category: Coded 0-4 bases on nodule(s) with highest degree of suspicion. Negative screen is defined as categories 1 and 2; a positive screen is defined as categories 3 and 4. Category 3 and 4A nodules that are unchanged on interval CT should be coded as category 2, and individuals returned to screening in 12 months. Category 4X: Category 3 or 4 nodules with additional imaging findings that increase the suspicion of lung cancer, such as spiculation, GGN that doubles in size in 1 year, enlarged lymph notes, etc. Category Modifiers: S (significant finding unrelated to lung cancer) Electronically Signed: Marcos Alexandra MD at 14:28 EDT ,
== END | disposition home or self-care (01) ==
LOC: CT 13:23
PROVIDERS: PCP Family Medicine; Referring Provider Nurse Practitioner Family; Visit Provider Nurse Practitioner Family
DX: Z12.2 Encounter for screening for malignant neoplasm of respiratory organs (principal); Z87.891 Personal history of nicotine dependence
CPT/HCPCS: 71271

== ENCOUNTER → 2023-09-13 | Outpatient (CLI) | payer MEDICARE, SELFPAY ==
[2023-09-13 12:17] LABS: Absolute Lymphocyte Count 2.04 X10^3/uL (0.83-4.51); Absolute Neutrophil Count 5.8 X10^3/uL (2.0-7.7); Basophil# 0.06 X10^3/uL; Basophil% 0.7 % (0-1); Eosinophil# 0.16 X10^3/uL; Eosinophils% 1.8 % (0-5); Hematocrit 44.4 % (40-54); Hemoglobin 14.2 g/dL (13.0-16.5); Lymphocyte # 2.04 X10^3/ul (0.83-4.51); Lymphocyte % 23.4 % (19-41); Mean Corpuscular Hgb 31.1 pg (27.0-32.0); Mean Corpuscular Volume 97.2 fL (80-94); Mean Platelet Vol. 10.4 fl (6.2-12.0); Monocyte# 0.59 X10^3/uL; Monocyte% 6.8 % (0-10); NRBC Flagged by Analyzer 0 % (0-5); Neutrophil # 5.81 X10^3/uL (2.7-7.7); Neutrophil % 66.8 % (47-70); Platelet Count 317 K/mm3 (150-450); RBC Distribution Width CV 13.5 % (11.6-14.6); RBC Distribution Width SD 48.4 fl (35.1-43.9); Red Blood Count 4.57 M/mm3 (4.6-6.2); White Blood Count 8.7 K/mm3 (4.4-11.0)
[2023-09-13 13:12] LABS: AST(SGOT) 14 U/L (15-37); Alanine Aminotransfer ALT/SGPT 26 U/L (16-61); Albumin, Serum 3.8 g/dL (3.2-5.0); Alkaline Phosphatase 116 U/L (45-117); Anion Gap 9 (5-15); BUN 21 mg/dL (7-18); BUN/Creat Ratio 18.3 RATIO (10-20); Calcium,Total 8.9 mg/dL (8.5-10.1); Chloride 106 mmol/L (98-107); Cholesterol 128 mg/dL (200); Creatinine, Serum 1.15 mg/dL (0.70-1.30); EST Glomerular Filtration Rate 67 mL/min (>60); Est Glom Filt Rate - Afr Amer 81 mL/min (>60); Globulin 3.7 g/dL (2.2-4.2); Glucose 224 mg/dL (74-106); High Density Lipoprotein 62 mg/dL; Potassium 3.8 mmol/L (3.5-5.1); Protein, Total 7.5 g/dL (6.4-8.2); Sodium Level 139 mmol/L (136-145); Thyroid Stim Hormone (TSH) 0.96 uIU/mL (0.358-3.74); Triglycerides 156 mg/dL; Very Low Density Lipoprotein 31 mg/dL (5-40)
[2023-09-13 14:42] LABS: Hemoglobin A1c 7.6 % (3.8-5.6)
== END | disposition home or self-care (01) ==
LOC: BIMLAB 09:50
PROVIDERS: PCP Family Medicine; Visit Provider Nurse Practitioner
DX: E11.9 Type 2 diabetes mellitus without complications (principal); E03.9 Hypothyroidism, unspecified
CPT/HCPCS: 36415; 80053; 80061; 83036; 84443; 85025

== ENCOUNTER → 2024-09-04 | Outpatient (CLI) | payer MEDICARE, SELFPAY ==
--- NOTE | 2024-09-04 12:49 | CT_ITS ---
PROCEDURE: LOW DOSE CT LUNG SCREENING 09/04/2024 REASON FOR EXAM: LUNG CANCER SCREENING TECHNIQUE: Low Dose CT Lung screening without contrast. Coronal and Sagittal reconstruction series were provided. One or more dose reduction techniques were used (e.g., Automated exposure control, adjustment of the mA and/or kV according to patient size, use of iterative reconstruction technique). REFERENCE LINK: [place] Lung-RADS RADIATION DOSE SUMMARY: DLP: 155.52 mGycm COMPARISON: 09/28/2022 low-dose CT. FINDINGS: PULMONARY NODULES: (Only nodules >3mm are reported) Nodules described below are on series 2 unless otherwise specified. Pulmonary Nodules: 1. Stable 5 mm x 6 mm noncalcified nodule in the peripheral lateral aspect of the right lower lobe, axial image 181. 2. Stable 3 mm noncalcified micronodule in the peripheral lateral aspect of the left lower lobe, axial image 148. Lungs and Airways: Mild centrilobular emphysematous changes redemonstrated. Endobronchial lesion: Unremarkable. Aorta: Mild atherosclerotic calcific plaques. Coronary artery: Coronary artery calcifications are redemonstrated. Heart: Unremarkable. Pulmonary artery: Unremarkable. Mediastinum: No suspicious adenopathy. Pleura: No abnormalities. Upper Abdomen:No abnormalities are demonstrated. Bones:Multilevel spondylosis. CT/Low Dose CT Lung Screening IMPRESSION: Lung-RADS Category: 2 Continue annual screening with LDCT in 12 months. Reading Location: [place] [id number]
== END | disposition home or self-care (01) ==
LOC: CT 12:48
PROVIDERS: PCP Family Medicine; Referring Provider Nurse Practitioner Family; Visit Provider Nurse Practitioner Family
DX: Z12.2 Encounter for screening for malignant neoplasm of respiratory organs (principal); Z87.891 Personal history of nicotine dependence
CPT/HCPCS: 71271

== ENCOUNTER → 2024-10-09 | Outpatient (CLI) | payer MEDICARE, SELFPAY ==
[2024-10-09 16:33] LABS: AST(SGOT) 93 U/L (<=37); Alanine Aminotransfer ALT/SGPT 81 U/L (<=46); Albumin, Serum 4.0 g/dL (3.4-4.8); Alkaline Phosphatase 155 U/L (40-129); Anion Gap 15 (5-15); BUN 13 mg/dL (4-19); BUN/Creat Ratio 15.6 RATIO (10-20); Calcium,Total 9.5 mg/dL (7.6-11.0); Carbon Dioxide 22.3 mmol/L (21.0-32.0); Chloride 103 mmol/L (98-108); Cholesterol 106 mg/dL (<=200); Globulin 3.6 g/dL (2.2-4.2); Glucose 158 mg/dL (70-99); Low Density Lipoprotein Calc. 44 mg/dL; Potassium 4.5 mmol/L (3.3-5.1); Triglycerides 109 mg/dL; Very Low Density Lipoprotein 22 mg/dL (5-40); cholesterol:hdl ratio screen 2.62
== END | disposition home or self-care (01) ==
LOC: BIMLAB 11:33
PROVIDERS: PCP Family Medicine; Referring Provider Family Medicine; Visit Provider Family Medicine
DX: I10 Essential (primary) hypertension (principal); E11.9 Type 2 diabetes mellitus without complications
CPT/HCPCS: 36415; 80053; 80061